=== PATIENT | female | born 1985 ===

== ENCOUNTER 2017-03-14 13:06 | Emergency (ER) | payer OTHER ==
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
[2017-03-14 16:27] VITALS: BMI 34.8
[2017-03-14 18:01] VITALS: O2SAT 98
[2017-03-14 18:09] VITALS: BP 122/79; PULSE 81; RESP 16; TEMP 97.9
--- NOTE | 2017-03-15 08:13 | CT ---
PROCEDURE: CT brain dated in 02/202003/09/2017 HISTORY: COMPARISON: No prior TECHNIQUE: Axial computed tomography images were obtained through the head/brain without intravenous contrast. Radiation dose: Total exam DLP = mGy-cm. This CT exam was performed using one or more of the following dose reduction techniques: Automated exposure control, adjustment of the mA and/or kV according to patient size, and/or use of iterative reconstruction technique. FINDINGS: HEMORRHAGE: No acute parenchymal, subarachnoid or extra-axial hemorrhage. BRAIN: No evidence of large acute infarct. No obvious parenchymal nor extra-axial mass or collection. No evidence of any significant chronic white matter ischemic changes. VENTRICLES: There is mild moderate asymmetry of the lateral ventricles left-sided which is larger than the right nonspecific. CALVARIUM: Calvarium appears intact. PARANASAL SINUSES: Unremarkable as visualized. No significant inflammatory changes. MASTOID AIR CELLS: Unremarkable as visualized. No inflammatory changes. OTHER FINDINGS: None. IMPRESSION: No acute intracranial hemorrhage. Mild moderate asymmetric enlargement of the left lateral ventricle compared to the right nonspecific.
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
--- NOTE | 2017-03-15 08:13 | CT ---
PROCEDURE: CT Cervical Spine without contrast HISTORY: <> COMPARISON: None available. TECHNIQUE: Axial computed tomography images were obtained of the cervical spine without the use of intravenous contrast. Coronal and sagittal reformatted images were created and reviewed. Radiation dose: Total exam DLP = 528.28 mGy-cm. This CT exam was performed using one or more of the following dose reduction techniques: Automated exposure control, adjustment of the mA and/or kV according to patient size, and/or use of iterative reconstruction technique. FINDINGS: VERTEBRAE: No acute compression fractures nor retropulsed fragments. Vertebral bodies exhibit normal stature. Vertebral bodies and facets normally aligned. DISCS/SPINAL CANAL/NEURAL FORAMINA: Disc space heights are relatively maintained. The there are no disc herniation or significant disc bulges. The overall central bony canal and exit foramina appear adequate. PARASPINAL SOFT TISSUES: The prevertebral and paraspinal soft tissues unremarkable. OTHER FINDINGS: Lung apices are clear. No infiltrate effusion or apical pneumothorax IMPRESSION: No evidence of acute compression fractures nor the retropulsed fragments.
== END 2017-03-14 18:01 | disposition home or self-care (01) ==
LOC: H.ER 13:06
DX: S09.90XA Unspecified injury of head, initial encounter (principal); S13.4XXA Sprain of ligaments of cervical spine, initial encounter; V43.52XA Car driver injured in collision with other type car in traffic accident, initial encounter; Y92.410 Unspecified street and highway as the place of occurrence of the external cause